=== PATIENT | female | born 1970 | race Caucasian/White ===

== ENCOUNTER 2020-07-26 16:51 | Outpatient (RCR) | payer BC | END 2020-08-01 | LOC: PT 16:51 | PROVIDERS: ATTEND Neurological Surgery | DX: M51.27 Other intervertebral disc displacement, lumbosacral region (principal) ==

== ENCOUNTER 2020-08-02 17:17 | Outpatient (RCR) | payer BC | END 2020-08-31 | LOC: PT 17:17 | PROVIDERS: ATTEND Neurological Surgery | DX: M51.27 Other intervertebral disc displacement, lumbosacral region (principal) ==